=== PATIENT | male | born 1985 | race Hispanic/Latino ===

== ENCOUNTER 2021-10-31 16:21 | Emergency (ER) | payer OTHER ==
[~2021-10-31] VITALS: Ht 165.1 cm; Wt 90.7 kg
[2021-10-31] MEDS ORDERED: SODIUM CHLORIDE IRR BOTTLE IR ONE (16:43)
[2021-10-31] MEDS ORDERED: LIDOCAINE 1% VIAL ONE ×2 (16:44→17:16)
[2021-10-31 16:48] VITALS: BP 151/96
[2021-10-31 16:54] VITALS: BP_SYST 151
[2021-10-31] MEDS ORDERED: BOOSTRIX IM ONE ×2 (17:00→17:01)
--- NOTE | 2021-10-31 17:07 | ER.PDOC ---
General Chief Complaint: Trauma Stated Complaint: LEFT THUMB LACERATION Time seen by MD: 17:04 Source: patient Exam Limitations: no limitations History of Present Illness Initial Comments Laceration of the left thumb with a table saw this afternoon Occurred: just prior to arrival Severity: moderate Context: laceration Location of Injury: (L) fingers Allergies: Coded Allergies: No Known Allergies (Unverified , 10/31/21) Past Medical History Medical History: asthma Surgical History: no surgical history Family History Significant Family History: no pertinent family hx Social History Smoking: non-smoker Alcohol Use: occassionally Drug Use: marijuana Review of Systems Constitutional: no symptoms reported EENTM: no symptoms reported Respiratory: no symptoms reported Cardiovascular: no symptoms reported Gastrointestinal: no symptoms reported Musculoskeletal: see HPI All Other Systems: Reviewed and Negative Physical Exam General Appearance: Alert, No Apparent Distress Hand: see diagram Wrist: nml inspection, non-tender, nml ROM 1 - Lac Neuro: sensation nml, motor nml Vascular: no vascular compromise Tendons: tendon function nml Forearm/Elbow/Arm: uninjured above wrist Head/ENT: nml inspection, pharynx nml Neck/Back: nml inspection, non-tender Resp/CVS: no resp distress, lungs clear, heart sounds nml, reg. rate & rhythm Abdomen: non-tender, no organomegaly ED LACERATION WOUND REPAIR # of Wounds/Lacerations Presen: 1 Wound Location & Length (Requi: Left thumb Wound Length (cm): 4 Wound cleaned: betadine Anesthesia type: digital block Anesthesia: 1% Lidocaine Volume Anesthetic (ccs): 10 Wound's Depth, Shape: irregular Irrigated w/ Saline (ccs): 50 Wound Debrided: minimal Wound Repaired With: sutures Suture Size/Type: 4:0, ethilon Suture Style: interupted Number of Sutures: 7 Sterile Dressing Applied?: Yes Results/Orders Results/Orders Orders - DAPHNE WHITMAN MD Sodium Chloride Irrig Solution (Sodium C (10/31/21 16:43) Lidocaine Hcl (Lidocaine 1% Vial) (10/31/21 16:44) Xr Finger Lt (10/31/21 16:56) Diph,Pertuss(Acell),Tet Vac/Pf (Boostrix (10/31/21 17:00) Diph,Pertuss(Acell),Tet Vac/Pf (Boostrix (10/31/21 17:01) Lidocaine Hcl (Lidocaine 1% Vial) (10/31/21 17:16) Vital Signs Date Time Temp Pulse Resp B/P (MAP) Pulse Ox O2 Delivery O2 Flow Rate FiO2 10/31/21 16:54 17 10/31/21 16:48 98.5 96 17 96 10/31/21 16:48 98.5 96 17 151/96 (114) 96 Room Air 10/31/21 16:48 98.5 96 17 Administered Medications Medications (Trade) Dose Ordered Sig/Gayathri Route PRN Reason Start Time Stop Time Status Last Admin Dose Admin Diphtheria/ Tetanus/Acell Pertussis (Boostrix) 0.5 ml ONCE ONCE IM 10/31/21 17:00 10/31/21 17:01 DC 10/31/21 17:05 0.5 ML Progress Progress X rays of left thumb: Mild soft tissue swelling of the thumb without acute bony abnormality. Patient received a tetanus shot. ER DEPART Departure Time of Disposition: 18:01 Disposition: 01 HOME / SELF CARE / HOMELESS Impression: Primary Impression: Laceration of thumb, left Condition: Improved Referrals: PCP,UNKNOWN (PCP) PRIMARY CARE PROVIDER Additional Instructions: Keflex Apply Neosporin daily Keep wound dry and clean Tylenol Remove sutures in 10 days at your PCP or ED Return to ED earlier if any concerns Duration or Time Spent with Pa: 20 min Problem Qualifiers Primary Impression: Laceration of thumb, left Encounter type: initial encounter Damage to nail status: unspecified Foreign body presence: without foreign body Qualified Codes: S61.012A - Laceration without foreign body of left thumb without damage to nail, initial encounter DAPHNE WHITMAN MD Oct 31, 2021 17:07
--- NOTE | 2021-10-31 17:30 | DIREP ---
PROCEDURE:XRAY FINGER-LT COMPARISON:None. INDICATIONS:Pain/injury FINDINGS: BONES:Normal. No visible fracture. JOINTS:Normal. No dislocation or significant joint space narrowing. SOFT TISSUES:Mild soft tissue swelling of the thumb. No radiopaque foreign body. OTHER:No additional findings. CONCLUSION:Mild soft tissue swelling of the thumb without acute bony abnormality. Dictated by: Elier Barnhart M.D. on 10/31/2021 at 05:27 PM
[2021-10-31] MEDS ORDERED: NORCO 5MG PO STA (17:58)
[2021-10-31] MEDS ORDERED: TRIPLE ANTIBIOTIC OINTMENT TP ONE (18:02)
[2021-10-31] MEDS ORDERED: NORCO 5MG PO ONE (18:03)
== END 2021-10-31 18:11 | disposition home or self-care (01) ==
LOC: ER 16:21
DX: S61.012A Laceration without foreign body of left thumb without damage to nail, initial encounter (principal); J45.909 Unspecified asthma, uncomplicated; F12.90 Cannabis use, unspecified, uncomplicated; W27.0XXA Contact with workbench tool, initial encounter; Y93.89 Activity, other specified; Y92.89 Other specified places as the place of occurrence of the external cause; Y99.8 Other external cause status
CPT/HCPCS: 12002; 73140; 90471; 90715; 99285; A4217; J2001 ×2; 99283